=== PATIENT | female | born 1950 | race Hispanic/Latino ===

== ENCOUNTER → 2018-06-22 | Outpatient (CLI) | payer MEDICARE | END | disposition home or self-care (01) | LOC: RAH 09:56 | PROVIDERS: ATTEND Internal Medicine | DX: Z12.31 Encounter for screening mammogram for malignant neoplasm of breast (principal) | CPT/HCPCS: 77067 ==

== ENCOUNTER → 2018-12-14 | Outpatient (CLI) | payer MEDICARE | END | disposition home or self-care (01) | LOC: RAH 12:54 | PROVIDERS: ATTEND Internal Medicine | DX: R10.2 Pelvic and perineal pain (principal); Z90.710 Acquired absence of both cervix and uterus; Z90.721 Acquired absence of ovaries, unilateral | CPT/HCPCS: 76856 ==

== ENCOUNTER → 2019-07-03 | Outpatient (CLI) | payer MEDICARE | END | disposition home or self-care (01) | LOC: RAH 07:55 | PROVIDERS: ATTEND Internal Medicine | DX: Z12.31 Encounter for screening mammogram for malignant neoplasm of breast (principal) | CPT/HCPCS: 77067 ==

== ENCOUNTER → 2019-12-04 | Outpatient (CLI) | payer MEDICARE ==
[~2019-12-04] MED LIST: IOHEXOL-350 75 ML VIAL IV ONE
== END | disposition home or self-care (01) ==
LOC: RAH 08:37
PROVIDERS: ATTEND Internal Medicine
DX: K57.30 Diverticulosis of large intestine without perforation or abscess without bleeding (principal); Z90.49 Acquired absence of other specified parts of digestive tract
CPT/HCPCS: 74178; Q9967

== ENCOUNTER → 2020-02-19 | Outpatient (CLI) | payer MEDICARE ==
[~2020-02-19] MED LIST changes: +IOHEXOL 350 MG/ML 100ML INFUS..BTL IV ONE; -IOHEXOL-350 75 ML VIAL IV ONE
== END | disposition home or self-care (01) ==
LOC: OIH 09:36
PROVIDERS: ATTEND Internal Medicine
DX: J98.11 Atelectasis (principal); K57.30 Diverticulosis of large intestine without perforation or abscess without bleeding; K57.92 Diverticulitis of intestine, part unspecified, without perforation or abscess without bleeding
CPT/HCPCS: 74178; Q9967

== ENCOUNTER → 2022-09-24 | Outpatient (CLI) | payer MEDICARE | END | disposition home or self-care (01) | LOC: RAH 09:04 | PROVIDERS: ATTEND Internal Medicine | DX: Z12.31 Encounter for screening mammogram for malignant neoplasm of breast (principal) | CPT/HCPCS: 77067 ==

== ENCOUNTER → 2022-10-27 | Outpatient (CLI) | payer MEDICARE ==
[2022-10-27 16:29] LABS: CREATININE 0.8 mg/dL (0.5-1.5); POTASSIUM 4.5 mmol/L (3.5-5.1)
== END | disposition home or self-care (01) ==
LOC: LAB 15:09
PROVIDERS: ATTEND Internal Medicine Cardiovascular Disease
DX: R94.31 Abnormal electrocardiogram [ECG] [EKG] (principal)
CPT/HCPCS: 36415; 80048

== ENCOUNTER → 2022-11-05 | Outpatient (CLI) | payer MEDICARE, OTHER | END | disposition home or self-care (01) | LOC: RAH 11:14 | PROVIDERS: ATTEND Internal Medicine Cardiovascular Disease | DX: R07.9 Chest pain, unspecified (principal) | CPT/HCPCS: 75574; Q9967 ==

== ENCOUNTER → 2022-12-24 | Outpatient (CLI) | payer MEDICARE, OTHER | END | disposition home or self-care (01) | LOC: SHCH 14:34 | PROVIDERS: ATTEND Internal Medicine Cardiovascular Disease | DX: I51.7 Cardiomegaly (principal); R07.9 Chest pain, unspecified; E78.5 Hyperlipidemia, unspecified | CPT/HCPCS: 93306 ==

== ENCOUNTER → 2023-01-07 | Outpatient (CLI) | payer MEDICARE, OTHER | END | disposition home or self-care (01) | LOC: SHCH 13:22 | PROVIDERS: ATTEND Internal Medicine Cardiovascular Disease | DX: G45.9 Transient cerebral ischemic attack, unspecified (principal); R07.9 Chest pain, unspecified | CPT/HCPCS: 93880 ==

== ENCOUNTER → 2023-01-19 | Outpatient (CLI) | payer MEDICARE, OTHER | END | disposition home or self-care (01) | LOC: RAH 09:32 | DX: M47.817 Spondylosis without myelopathy or radiculopathy, lumbosacral region (principal); M54.42 Lumbago with sciatica, left side; M43.17 Spondylolisthesis, lumbosacral region | CPT/HCPCS: 72100 ==

== ENCOUNTER → 2023-02-17 | Outpatient (CLI) | payer MEDICARE, OTHER | END | disposition home or self-care (01) | LOC: RAH 11:38 | PROVIDERS: ATTEND Internal Medicine | DX: M43.8X6 Other specified deforming dorsopathies, lumbar region (principal); M48.07 Spinal stenosis, lumbosacral region; M47.817 Spondylosis without myelopathy or radiculopathy, lumbosacral region; G57.02 Lesion of sciatic nerve, left lower limb | CPT/HCPCS: 72148 ==

== ENCOUNTER → 2023-10-05 | Outpatient (CLI) | payer MEDICARE, OTHER ==
[~2023-10-05] MED LIST changes: +ACET-2079 PO; +ATOR10TA69 PO; +CLOP75TA32 PO; -IOHEXOL 350 MG/ML 100ML INFUS..BTL IV ONE; +PANT40TA54 PO
== END | disposition home or self-care (01) ==
LOC: RAH 11:20
PROVIDERS: ATTEND Internal Medicine
DX: Z12.31 Encounter for screening mammogram for malignant neoplasm of breast (principal)
CPT/HCPCS: 77067

== ENCOUNTER → 2024-07-13 | Outpatient (CLI) | payer MEDICARE, OTHER ==
--- NOTE | 2024-07-13 11:25 | HMCIMG ---
HIP UNILAT 2-3VW RIGHT HISTORY: Right hip bursitis COMPARISON: None TECHNIQUE: 2 images of right hip were obtained. FINDINGS: There is no acute displaced fracture or dislocation. Degenerative changes are seen. If there is clinical suspicion for right hip bursitis, MRI may be helpful. Postop changes are seen of the left proximal femur. IMPRESSION: 1. Findings as described above.
== END | disposition home or self-care (01) ==
LOC: RAH 09:29
DX: M16.11 Unilateral primary osteoarthritis, right hip (principal); M70.61 Trochanteric bursitis, right hip
CPT/HCPCS: 73502

== ENCOUNTER 2024-10-03 10:26 | Inpatient (IN) | payer MEDICARE ==
[~2024-10-03] VITALS: Ht 160 cm; Wt 67.6 kg
[2024-10-03] MEDS: morPHINE 2 MG SYG IVP ONE (10:43)
[2024-10-03] MEDS: ondanSETRON 4MG INJ IVP ONE (10:43)
[2024-10-03] MEDS: 0.9% NACL 500ML IV.SOLN 500 ML IV ONE (10:43)
--- NOTE | 2024-10-03 11:28 | HMCIMG ---
FEMUR 2VW RIGHT REASON: fall TECHNIQUE: 4 views were obtained. FINDINGS: There is a fracture of the right femoral shaft several centimeters below the intertrochanteric region. There is mild medial displacement of the distal shaft as well as varus angulation. Remainder of the femur appears intact. IMPRESSION: 1. Fractured proximal right femoral shaft.
--- NOTE | 2024-10-03 11:28 | HMCIMG ---
Exam: AP pelvis and right hip 3 views. Reason: Fall, trauma. FINDINGS: There is an angulated mildly displaced fracture of the right proximal femoral shaft several centimeters below the intertrochanteric region. There is varus angulation of the distal shaft. Bones of the pelvis appear intact. There is fixation hardware in the proximal left femur consistent with remote previous fracture fixation. IMPRESSION: 1. Subtrochanteric angulated and mildly displaced fracture proximal right femur.
--- NOTE | 2024-10-03 11:29 | HMCIMG ---
CHEST 1VW REASON: LEFT SIDE CHEST PAIN COMPARISON: 03/02/2023 FINDINGS: Single view of the chest was obtained. Lungs are clear. Heart size is normal. There is no pulmonary vascular congestion. Mediastinum and bony thorax appear unremarkable. IMPRESSION: 1. Normal single view chest x-ray.
--- NOTE | 2024-10-03 11:39 | ERN ---
General Chief Complaint: Mechanical Fall Stated Complaint: FALL Time Seen by MD: 10:29 Time Seen by Midlevel: 10:29 Source: patient, EMS History of Present Illness Initial Comments Patient is a 74-year-old female with a past medical history of hyperlipidemia on atorvastatin and Plavix presenting to the emergency department following a mechanical ground level fall. Patient states she was walking with her cane when she accidentally lost balance and fell onto her right side. The patient reports a significant amount of pain to the right hip. There is an obvious deformity noted. EMS administered 75 mcg of fentanyl EN route. On arrival patient is specifically denies any head injury, loss of consciousness, nausea, vomiting, vision changes or headache. She does report some chest wall pain. Allergies: Coded Allergies: Penicillins (Unverified Allergy, Unknown, 03/02/23) cephalexin (Unverified Allergy, Unknown, 03/02/23) gabapentin (Unverified Allergy, Unknown, 03/02/23) Home Meds Active Scripts Acetaminophen with Codeine (Acetaminophen-Cod #3 Tablet) 1 Each Tablet, 1 EACH PO DAILY for 5 Days, #10 TAB Prov:JACKIE SPEAR CONE TREATER 03/08/23 Reported Medications Cetirizine HCl (Zyrtec) 10 Mg Capsule, 1 CAP PO DAILY for allergy symptoms for 30 Days, #30 CAP 0 Refills 10/03/24 Montelukast Sodium (Singulair 10Mg) 10 Mg Tab, 1 TAB PO DAILY for 30 Days, #30 TAB 0 Refills 10/03/24 Atorvastatin Calcium (Atorvastatin Calcium) 10 Mg Tablet, 1 TAB PO DAILY 03/06/23 Clopidogrel Bisulfate (Clopidogrel) 75 Mg Tablet, 1 TAB PO DAILY 03/06/23 Pantoprazole Sodium (Pantoprazole Sodium) 40 Mg Tablet.dr, 1 TAB PO DAILY 03/06/23 Past Medical History Past Medical History: Hypertension Medical History Other: Back pain, osteoarthritis Past Surgical History: None Family History Family History: CAD, HTN Social History Social History: Negative, Lives with family ROS Dictation CONSTITUTIONAL: Negative except for HPI HEAD/FACE: Negative except for HPI EENT: Negative except for HPI RESPIRATORY: Negative except for HPI GASTROINTESTINAL/ABDOMINAL: Negative except for HPI GENITOURINARY: Negative except for HPI MUSCULOSKELETAL: Negative except for HPI INTEGUMENTARY: Negative except for HPI NEUROLOGICAL/PSYCH: Negative except for HPI HEMATOLOGIC/LYMPHATIC: Negative except for HPI All Systems Negative, Except as noted above. 13 point review of systems assessed and all negative except for above. Physical Exam Physical Exam Dictation Vital Signs reviewed General Appearance: Alert, oriented x 3, no acute distress, well developed, nourished. Head and Face: non-traumatic. Eyes: PERRL, pink conjunctivas, eyelid no trauma, anterior chamber with arcus senilis. Ears: Pinnas intact and no signs of trauma or erythema ear canals clear and no discharge TM no erythema Nose: No discharge, no bleeding. Oropharynx: Mouth normal, tongue pink, pharynx clear,no erythema, tonsils no exudates, no abscesses noted, mucous membrane moist Neck: Supple, non-tender, no thyromegaly, no masses, no JVD, no bruits Breast:Deferred Chest:No tenderness, no crepitus, no paradoxical movement, no retractions Lungs:Clear, well-ventilated, symmetric, no rales, no wheezing, no rhonchi, no stridor, good breath sounds bilaterally Heart: Regular rate, regular rhythm, no murmur, no gallops Vascular: no peripheral edema, Abdomen: Soft, positive bowel sounds, nondistended, no guarding, nontender, no rebound, no masses no hepatomegaly, no splenomegaly, no Casarez's sign, no hernias. Rectal: Deferred Genital: Deferred Neurological: Normal speech, motor function intact, sensory function intact Musculoskeletal: Neck nontender, full range of motion, back nontender, full range of motion, Extremities: Deformity to the right proximal femur, compartments are soft, patient was able to move all five toes of the right foot, sensation is intact to the right lower extremity, there is 2+ DP, PT pulses bilaterally. Skin: Color pink, dry, no turgor, no rash, no lacerations, no abrasions, no contusions. Lymphatic: Deferred Results Laboratory and Microbiology Lab and Micro Result Laboratory Tests Test 10/03/24 11:18 White Blood Count 7.1 K/uL (4.8-10.8) Red Blood Count 3.79 MIL/uL (4.00-5.50) L Hemoglobin 12.3 g/dL (12.0-16.0) Hematocrit 37.3 % (36-48) Mean Corpuscular Volume 98.4 fL (79-99) Mean Corpuscular Hemoglobin 32.5 pg (27.0-33.0) Mean Corpuscular Hemoglobin Concent 33.0 g/dL (32.0-36.0) Red Cell Distribution Width 12.2 % (11.0-15.5) Platelet Count 251 K/uL (130-400) Mean Platelet Volume 9.8 fL (7.5-10.5) Immature Granulocyte % (Auto) 0.4 % (0-1) Neutrophils (%) (Auto) 67.4 % (40.0-77.0) Lymphocytes (%) (Auto) 25.0 % (21.0-51.0) Monocytes (%) (Auto) 5.2 % (3.0-13.0) Eosinophils (%) (Auto) 1.3 % (0.0-8.0) Basophils (%) (Auto) 0.7 % (0.0-5.0) Neutrophils # (Auto) 4.8 K/uL (1.8-7.7) Lymphocytes # (Auto) 1.8 K/uL (1.0-4.8) Monocytes # (Auto) 0.4 K/uL (0.1-1.0) Eosinophils # (Auto) 0.09 K/uL (0.00-0.70) Basophils # (Auto) 0.05 K/uL (0.00-0.20) Absolute Immature Granulocyte (auto 0.03 K/uL (0-1) Nucleated Red Blood Cells 0.0 % (0.0-0.19) Prothrombin Time 10.7 SEC (9.6-11.6) Prothromb Time International Ratio 0.95 (0.85-1.15) Activated Partial Thromboplast Time 25.8 SEC (26.3-35.5) L Sodium Level 140 mmol/L (136-145) Potassium Level 3.6 mmol/L (3.5-5.1) Chloride Level 106 mmol/L (101-111) Carbon Dioxide Level 29 mmol/L (21-32) Blood Urea Nitrogen 26 mg/dL (7-18) H Creatinine 0.5 mg/dL (0.5-1.0) Glomerular Filtration Rate Calc 98 mL/min (>90) Random Glucose 97 mg/dL (70-105) Total Calcium 8.2 mg/dL (8.5-10.1) L Troponin I High Sensitivity < 4 ng/L (4-50) L Labs Reviewed?: Yes MDM MDM: Differential diagnosis: Fracture, dislocation, contusion Rationale: Tests considered and ordered secondary to shared decision making include: Previous outside records reviewed: Old ER visits. Risk of complication and/or morbidity or mortality of patient management: None Medications-Per medication reconciliation Need for hospitalization: Patient does meet criteria for hospitalization. Need for emergency major/minor surgery: No There are no social concerns with this patient. Prescription drug management Prescriptions will include symptomatic care Patient's prior external medical records from other ER visits were reviewed by me as indicated. Prior testing and results from previous visits were reviewed. Prior tests were taken into account with medical decision making and resource utilization, independent historian/historians were used to obtain complete medical history. I independently interpreted the test that were performed, results were reviewed by me and considered findings on radiology if ordered. Medical management and examination interpretation discussions were had by me with other qualified healthcare professionals as indicated for the patient's care. ED Course Orders Procedure Category Date Status Time Cbc With Differential LAB 10/03/24 Complete 10:31 Basic Metabolic Panel LAB 10/03/24 Complete 10:31 Pt And Ptt LAB 10/03/24 Complete 10:31 Troponin I High LAB 10/03/24 Complete Sensitivity 10:31 Morphine 2mg Syg PHA 10/03/24 Complete (Morphine 2mg Syg) 11:00 Ondansetron 4mg Inj PHA 10/03/24 Complete (Zofran 4mg Inj) 11:00 0.9% Nacl 500ml PHA 10/03/24 Complete Iv.Soln (Ns 500ml 11:00 Hip Unilat 2-3vw Right RAD 10/03/24 Resulted 10:31 Femur 2vw Right RAD 10/03/24 Resulted 10:31 Type And Screen BBK 10/03/24 Complete 10:47 Chest 1vw RAD 10/03/24 Resulted 10:47 12 Lead Ekg Tracing- EKG 10/03/24 Complete Technical 10:47 Hydromorphone 1 Mg PHA 10/03/24 Complete Inj (Dilaudid 1mg Inj 11:30 Current Medications Medications (Trade) Dose Ordered Sig/Vel Route PRN Reason Start Time Stop Time Status Last Admin Dose Admin Hydromorphone HCl (DiLAUDid 1MG INJ) 1 mg ONCE ONCE IVP 1/28/25 11:30 10/03/24 11:31 DC 10/03/24 12:13 Morphine Sulfate (morPHINE 2MG SYG) 2 mg ONCE ONCE IVP 10/03/24 11:00 10/03/24 11:01 DC 10/03/24 10:43 Ondansetron HCl (zoFRAN 4MG INJ) 4 mg ONCE ONCE IVP 10/03/24 11:00 10/03/24 11:01 DC 10/03/24 10:43 Sodium Chloride 500 ml @ 0 mls/hr ONCE ONCE IV 10/03/24 11:00 10/03/24 11:01 DC 10/03/24 10:43 Vital Signs Date Time Temp Pulse Resp B/P (MAP) Pulse Ox O2 Delivery O2 Flow Rate FiO2 10/03/24 10:36 98.1 63 18 134/67 97 Room Air* 0 [address] [place] [address] [address] IMAGING REPORT Signed PATIENT: KORI ADAIR MR#: [id number] : 1950 SEX: F AGE: 74 LOCATION: [facility] ORDER 1048 STATUS: REG ER REPORT#: [id number] SERVICE 1047 REASON: LEFT SIDE CHEST PAIN ORDERING PHYSICIAN: ROSE MAST PROCEDURE: CXR1VW - CHEST 1VW CHEST 1VW REASON: LEFT SIDE CHEST PAIN COMPARISON: 03/02/2023 FINDINGS: Single view of the chest was obtained. Lungs are clear. Heart size is normal. There is no pulmonary vascular congestion. Mediastinum and bony thorax appear unremarkable. IMPRESSION: 1. Normal single view chest x-ray. DICTATED BY: DOUG GREENWOOD MD DATE: 10/03/241125 ELECTRONICALLY SIGNED BY: DOUG GREENWOOD MD DATE: 10/03/24 [address] [place] [id number] [place] [address] IMAGING REPORT Signed PATIENT: KORI ADAIR MR#: [id number] : 1950 SEX: F AGE: 74 LOCATION: ED ORDER 32 STATUS: REG ER [place] REPORT#: [id number] SERVICE 103 REASON: fall ORDERING PHYSICIAN: ROSE MAST PROCEDURE: HIP U 2V R - HIP UNILAT 2-3VW RIGHT Exam: AP pelvis and right hip 3 views. Reason: Fall, trauma. FINDINGS: There is an angulated mildly displaced fracture of the right proximal femoral shaft several centimeters below the intertrochanteric region. There is varus angulation of the distal shaft. Bones of the pelvis appear intact. There is fixation hardware in the proximal left femur consistent with remote previous fracture fixation. IMPRESSION: 1. Subtrochanteric angulated and mildly displaced fracture proximal right femur. DICTATED BY: DOUG GREENWOOD MD DATE: 10/03/241123 ELECTRONICALLY SIGNED BY: DOUG GREENWOOD MD DATE: 10/03/241127 [place] [address] IMAGING REPORT Signed PATIENT: KORI ADAIR MR#: [id number] : 1950 SEX: F AGE: 74 LOCATION: [facility] ORDER 32 STATUS: REG ER [place] REPORT#: [id number] SERVICE 103 REASON: fall ORDERING PHYSICIAN: ROSE MAST PROCEDURE: FEM RT 2 - FEMUR 2VW RIGHT FEMUR 2VW RIGHT REASON: fall TECHNIQUE: 4 views were obtained. FINDINGS: There is a fracture of the right femoral shaft several centimeters below the intertrochanteric region. There is mild medial displacement of the distal shaft as well as varus angulation. Remainder of the femur appears intact. IMPRESSION: 1. Fractured proximal right femoral shaft. DICTATED BY: DOUG GREENWOOD MD DATE: 10/03/241125 ELECTRONICALLY SIGNED BY: DOUG GREENWOOD MD DATE: 10/03/241127 DX & DISP Disposition: Inpatient Decision to Admit Date: Oct 03, 2024 Departure Impression: Primary Impression: Femur fracture, right Condition: Stable Referrals: EDU LOYD MD (PCP) I have reviewed the case, and I agree with, Diagnosis and Plan I performed the substantive portion of the visit. I have reviewed and personally made and approve the management plan that is documented in the note by myself or the [place]AR[place]. I acknowledge for responsibility for the patient's management plan. ROSE MAST Oct 03, 2024 11:39 JAY JAY CARLTON MD Oct 03, 2024 18:49
--- NOTE | 2024-10-03 12:05 | EKG ---
[facility] Test Date: 2024-10-03 Test Time: 11:15:50 Pat Name: KORI ADAIR Department: [facility] Room: 424 Gender: F Configuration Management Consultant: [id number] : 1950 Requested By: ROSE MAST Order Number: [id number] Reading MD: Bry Moore Measurements Intervals [place] Rate: 58 P: 59 AL: 159 QRS: 55 QRSD: 101 T: 36 QT: 442 QTc: 436 Interpretive Statements Sinus rhythm Compared to ECG 03/02/2023 23:53:43 No significant changes Electronically Signed On 10-04-2024 20:01:25 SWIMMING POOL SERVICEPERSON by Bry Moore Please click the below link to view image of tracing.
[2024-10-03 12:09] LABS: BASOPHILS # (AUTO) 0.05 K/uL (0.00-0.20); BASOPHILS % (AUTO) 0.7 % (0.0-5.0); EOSINOPHILS # (AUTO) 0.09 K/uL (0.00-0.70); EOSINOPHILS % (AUTO) 1.3 % (0.0-8.0); HEMATOCRIT 37.3 % (36-48); IMMATURE GRANULOCYTE ABSOLUTE 0.03 K/uL (0-1); LYMPHOCYTES # (AUTO) 1.8 K/uL (1.0-4.8); MEAN CORPUSCULAR HEMOGLOBIN 32.5 pg (27.0-33.0); MEAN CORPUSCULAR VOLUME 98.4 fL (79-99); MONOCYTES # (AUTO) 0.4 K/uL (0.1-1.0); MONOCYTES % (AUTO) 5.2 % (3.0-13.0); NEUTROPHILS # (AUTO) 4.8 K/uL (1.8-7.7); NEUTROPHILS % (AUTO) 67.4 % (40.0-77.0); PLATELET COUNT (AUTO) 251 K/uL (130-400); RED BLOOD CELL COUNT(AUTO) 3.79 MIL/uL (4.00-5.50); RED CELL DISTRIBUTION WIDTH 12.2 % (11.0-15.5); WHITE BLOOD COUNT (AUTO) 7.1 K/uL (4.8-10.8)
[2024-10-03] MEDS: hydroMORPHone 1 MG INJ IVP ONE (12:13)
--- NOTE | 2024-10-03 12:17 | NUR ---
PT INFORMED OF BUCKS TRACTION ORDER
[2024-10-03 12:28] LABS: CREATININE 0.5 mg/dL (0.5-1.0); POTASSIUM 3.6 mmol/L (3.5-5.1)
--- NOTE | 2024-10-03 12:31 | HP ---
[facility] HISTORY AND PHYSICAL Date of Service: Oct 03, 2024 Time of Service: 12:18 HISTORY OF PRESENT ILLNESS: [ ] This is a 74-year-old female presents in ER with right hip pain secondary to mechanical fall. Apparently patient was walking with her cane and lost balance and fell on her left side however she felt a pop on her right side. Patient presents in ED with chief complaints of right hip pain stated 10/10 on pain scale severity severe aggravated factors movement. Alleviating factors none. ER workup was consistent with right proximal femur fracture. Orthopedic was consulted. Patient is seen in ED15 patient is fully awake alert oriented x3. REVIEW OF SYSTEMS A14 point ROS was obtained all relevant positive with documented otherwise ROS negative PAST MEDICAL HISTORY: [ ] Hyperlipidemia TIA osteoporosis PAST SURGICAL HISTORY: [ ] Hysterectomy, appendectomy, left femur ORIF, PAST SOCIAL HISTORY: [ ] Denies smoking tobacco products and alcohol use. FAMILY HISTORY: [ ] Noncontributory Coded Allergies: Penicillins (Unverified Allergy, Unknown, 03/02/23) cephalexin (Unverified Allergy, Unknown, 03/02/23) gabapentin (Unverified Allergy, Unknown, 03/02/23) PHYSICAL EXAM GENERAL APPEARANCE: The patient is awake, alert, and oriented, in no acute cardiopulmonary distress. NEUROLOGICAL: Cranial nerves II-XII grossly intact. Motor is 5/5 in bilateral upper and lower extremities proximal to distal. No sensory deficits. HEENT: Face is symmetric. Pupils are equal and reactive. Extraocular movements are intact. NECK: Supple. No JVD. No thyromegaly. No submental, submandibular, pre- /postauricular, occipital or supraclavicular lymphadenopathy. CHEST: Normal chest expansion. No Telemetry. LUNGS: Absence of any rales, rhonchi or any wheezing. CARDIOVASCULAR: Regular. S1 and S2 normal. No appreciable rubs, murmurs or gallops. ABDOMEN: Soft, nontender, and nondistended. There is no rebound, voluntary guarding, or rigidity. : Deferred. No Hou. EXTREMITIES: Non-edematous and not cyanotic. No clubbing. Good capillary refill. Deformity right lower extremity SKIN: No skin breakdown. Vital Sign (Last 24 Hours) 10/03/24 10/03/24 10:36 11:52 Temp 98.1 Pulse 63 Resp 18 B/P (MAP) 140/58 Pulse Ox 96 O2 Delivery Room Air* O2 Flow Rate 0 FiO2 21 LABS: Laboratory: Test 10/03/24 11:18 Range/Units White Blood Count 7.1 4.8-10.8 K/uL Red Blood Count 3.79 L 4.00-5.50 MIL/uL Hemoglobin 12.3 12.0-16.0 g/dL Hematocrit 37.3 36-48 % Mean Corpuscular Volume 98.4 79-99 fL Mean Corpuscular Hemoglobin 32.5 27.0-33.0 pg Mean Corpuscular Hemoglobin Concent 33.0 32.0-36.0 g/dL Red Cell Distribution Width 12.2 11.0-15.5 % Platelet Count 251 130-400 K/uL Mean Platelet Volume 9.8 7.5-10.5 fL Immature Granulocyte % (Auto) 0.4 0-1 % Neutrophils (%) (Auto) 67.4 40.0-77.0 % Lymphocytes (%) (Auto) 25.0 21.0-51.0 % Monocytes (%) (Auto) 5.2 3.0-13.0 % Eosinophils (%) (Auto) 1.3 0.0-8.0 % Basophils (%) (Auto) 0.7 0.0-5.0 % Neutrophils # (Auto) 4.8 1.8-7.7 K/uL Lymphocytes # (Auto) 1.8 1.0-4.8 K/uL Monocytes # (Auto) 0.4 0.1-1.0 K/uL Eosinophils # (Auto) 0.09 0.00-0.70 K/uL Basophils # (Auto) 0.05 0.00-0.20 K/uL Absolute Immature Granulocyte (auto 0.03 0-1 K/uL Nucleated Red Blood Cells 0.0 0.0-0.19 % DIAGNOSTICS / RADIOLOGY: [ ] REASON: fall ORDERING PHYSICIAN: ROSE MAST PROCEDURE: HIP U 2V R - HIP UNILAT 2-3VW RIGHT Exam: AP pelvis and right hip 3 views. Reason: Fall, trauma. FINDINGS: There is an angulated mildly displaced fracture of the right proximal femoral shaft several centimeters below the intertrochanteric region. There is varus angulation of the distal shaft. Bones of the pelvis appear intact. There is fixation hardware in the proximal left femur consistent with remote previous fracture fixation. IMPRESSION: 1. Subtrochanteric angulated and mildly displaced fracture proximal right femur. ASSESSMENT: Right proximal femur fracture secondary to mechanical fall Chronic problems Hyperlipidemia, osteoporosis TIA on Plavix every other day PLAN: Admit: Surgical unit condition: Fair Status: Full code IVF: NS at 75 mL/hour Consultants orthopedic possible surgery tomorrow. DVT prophylaxis SCDs, pain management for adequate pain control Antibiotics: None Test: None Labs cbc, cmp, mag+ type screen Replace electrolytes as needed as per protocol to keep potassium above 4.0 magnesium 2.0. Home medication on Plavix every other day last dose Wednesday10/02/2024 PT services: 5 lb traction applied DVT prophylaxis SCDs PRN: MEDICATIONS Tylenol 650 mg po every 4 hrs for fever zofran 4 mg IV every 6 hrs for n/v Hydralazine 5 mg IV every 4 hrs systolic pressure > 160 bowel regiment: lactulose 20 gm PO BID PRN constipation Supportive measures: DVT ppx, GI ppx all questions answered time spent: > 35 min Supervising MD: c/d This document was generated in part using voice recognition software, occasional wrong word or sound alike substitutions may have occurred due to the inherent limitations of voice recognition software. Read the chart carefully and recognize using context, where the substitutions have occurred. Although every effort was made to edit the content, torpedo worker and typing errors may occur ADVANCED CARE PLANNING 1. Which of the following were discussed? Hospice Care - Yes / No Therapeutic options - Yes / No Advance Directives - Yes / No Other discussions - 2. Discussed with who? 3. Voluntary nature of this service was explained to the patient? Yes / No 4. Amount of time spent - 5. Reviewed by Physician? (if this service was performed by NPP) Yes / No ATTESTATION BY PHYSICIAN I have seen and examined the patient. I reviewed the documentation, medical decision making, and treatment plan as noted by the mid-level provider above. I agree with the findings and plan of care. SUZAN VARGAS MD, ELIZABETH NP Oct 03, 2024 12:31
[2024-10-03 12:59] LABS: INR 0.95 (0.85-1.15); PROTHROMBIN TIME 10.7 SEC (9.6-11.6)
[2024-10-03 13:01] LABS: PARTIAL THROMBOPLASTIN TIME 25.8 SEC (26.3-35.5)
--- NOTE | 2024-10-03 13:09 | NUR ---
ORTHO CONSULT: ROSE ENGLISH SPOKE WITH DR PATEL
--- NOTE | 2024-10-03 13:18 | NUR ---
BUCKS TRACTION PLACED PER ORDER BY PT
[2024-10-03] MEDS ORDERED: acetaMINOPHEN 325 MG TAB PO PRN (13:30)
[2024-10-03] MEDS ORDERED: hydrALAZine 20MG/ML VIAL IV PRN (13:30)
[2024-10-03] MEDS: HYDROcodone/APAP 5/325 1 TAB TABLET PO PRN (13:45)
[2024-10-03] MEDS: 0.9%NACL 1000ML 1,000 ML IV SCH (13:54)
--- NOTE | 2024-10-03 14:32 | NUR ---
arrived from ER patient alert and oriented x4, rating pain 9/10 to right lower extremity, neurovascular assessment completed, sensation intact, color appropriate, family at bedside, vitals stable on room air.
[2024-10-03 14:45] VITALS: BP 142/62; PULSE 69; RESP 17; TEMP 97.7
[2024-10-03] MEDS: hydroMORPHone 0.5 MG SYG (0.5MG/0.5ML) IVP PRN (14:47)
[2024-10-03 14:57] LABS: HIV 1&2 ANTIBODY Non-Reactive (Negative); HIV-1 p24 Antigen Preliminary Positive (Negative)
[2024-10-03] MEDS ORDERED: MONT-46 PO (15:56)
[2024-10-03] MEDS ORDERED: CETI10CA5 PO (15:56)
[2024-10-03 16:00] VITALS: BP 113/56; PULSE 67; RESP 15; TEMP 98.3
[2024-10-03 16:58] VITALS: O2SAT 97
[2024-10-03 19:35] VITALS: BP 130/65; PULSE 76; RESP 20; TEMP 98.4
[2024-10-03] MEDS: FAMOTIDINE 20MG TAB PO SCH (19:40)
[2024-10-03 20:00] VITALS: O2SAT 95
[2024-10-03 23:48] VITALS: BP 109/57; PULSE 61; RESP 20; TEMP 98.1
[2024-10-04] VITALS (26 sets, daily range): BP systolic 103–137; BP diastolic 43–87; PULSE 56–83; RESP 15–20; TEMP 97.1–98.2; O2SAT 97
--- NOTE | 2024-10-04 03:08 | CONS ---
TIME: Approximately 1:20 p.m. HISTORY OF PRESENT ILLNESS: A 74-year-old female who was walking had sudden onset of pain and fell on that left side, sustained a right subtrochanteric femur fracture. She was seen in the ER and I was asked to see her. PRIOR MEDICAL HISTORY: She also has a history of hyperlipidemia, TIA, and osteoporosis. PAST SURGICAL HISTORY: Hysterectomy, appendectomy and ORIF of the left femur. MEDICATIONS: In the chart, they were reviewed. ALLERGIES: SHE HAS ALLERGIES TO PENICILLIN, CEPHALEXIN, GABAPENTIN. SOCIAL HISTORY: She does not drink, smoke or do any drugs. PHYSICAL EXAMINATION: GENERAL: On exam, she is in bed, awake and alert and oriented. She is in no acute distress, in no pain. She is in traction. EXTREMITIES: Her left lower extremity skin is intact. Sensation intact. Compartments are soft. She can flex, extend her toes and ankles without difficulty. DIAGNOSTIC DATA: X-rays show a subtrochanteric femur fracture on that right side. She also has equal fracture on the left that is healed. IMPRESSION: Subtrochanteric femur fracture. PLAN: She has been cleared. We will her take her to surgery tomorrow for open reduction and internal fixation with intramedullary device. Risks and benefits were explained. TID: [id number] RECEIPT: [id number]
[2024-10-04 05:13] LABS: BASOPHILS # (AUTO) 0.03 K/uL (0.00-0.20); BASOPHILS % (AUTO) 0.4 % (0.0-5.0); EOSINOPHILS # (AUTO) 0.03 K/uL (0.00-0.70); EOSINOPHILS % (AUTO) 0.4 % (0.0-8.0); HEMATOCRIT 33.9 % (36-48); IMMATURE GRANULOCYTE ABSOLUTE 0.03 K/uL (0-1); LYMPHOCYTES # (AUTO) 2.1 K/uL (1.0-4.8); LYMPHOCYTES % (AUTO) 29.6 % (21.0-51.0); MEAN CORPUSCULAR HEMOGLOBIN 32.5 pg (27.0-33.0); MEAN CORPUSCULAR HGB CONC 33.6 g/dL (32.0-36.0); MEAN CORPUSCULAR VOLUME 96.6 fL (79-99); MONOCYTES # (AUTO) 0.6 K/uL (0.1-1.0); MONOCYTES % (AUTO) 8.9 % (3.0-13.0); NEUTROPHILS # (AUTO) 4.3 K/uL (1.8-7.7); NEUTROPHILS % (AUTO) 60.3 % (40.0-77.0); PLATELET COUNT (AUTO) 255 K/uL (130-400); RED BLOOD CELL COUNT(AUTO) 3.51 MIL/uL (4.00-5.50); RED CELL DISTRIBUTION WIDTH 12.3 % (11.0-15.5); WHITE BLOOD COUNT (AUTO) 7.1 K/uL (4.8-10.8)
[2024-10-04 05:30] LABS: ALBUMIN 3.2 g/dL (3.5-5.0); CREATININE 0.6 mg/dL (0.5-1.0); MAGNESIUM 2.1 mg/dL (1.80-2.40); POTASSIUM 4.1 mmol/L (3.5-5.1); TOTAL PROTEIN, SERUM 6.2 g/dL (6.0-8.3)
[2024-10-04] MEDS: FAMOTIDINE 20MG VIAL IV ONE (10:08)
[2024-10-04] MEDS: acetaMINOPHEN 100 ML ONE (10:08)
[2024-10-04] MEDS ORDERED: ketaMINE 50MG/ML SYRINGE 50 MG/ML DISP.SYRIN ONE (10:12)
[2024-10-04] MEDS ORDERED: LIDOCAINE PF 100MG/5ML (2%) SYRINGE 5ML ONE (10:12)
[2024-10-04] MEDS ORDERED: ROPivacaine 0.5% 5MG/ML 30ML ONE (10:12)
[2024-10-04] MEDS ORDERED: FENTanyl CITRate PF 50 MCG/1 ML 2ML VIAL ONE (10:13)
[2024-10-04] MEDS ORDERED: rocuRONium bROMide 10MG/1ML 5ML VL ONE (10:13)
[2024-10-04] MEDS ORDERED: proPOFol 10 MG/ML 20ML VIAL IV ONE (10:13)
[2024-10-04] MEDS: ceFAZolin SODIUM 2 GM VIAL IVPB ONE (10:46)
[2024-10-04] MEDS ORDERED: dexaMETHasone SOD PHOSPHATE 10MG/ML 1ML VIAL ONE (11:07)
[2024-10-04] MEDS ORDERED: ondanSETRON 4MG INJ ONE (11:07)
[2024-10-04] MEDS ORDERED: GLYCOPYRROLATE 0.2 MG/ML 5 ML VIAL ONE (11:18)
[2024-10-04] MEDS ORDERED: NEOSTIGMINE METHYLSULFATE 1MG/ML IV ONE (11:18)
[2024-10-04] MEDS ORDERED: ePHEDrine SULFate 50 MG/ML AMPULE ONE (11:28)
--- NOTE | 2024-10-04 13:42 | HMCIMG ---
FEMUR 2VW RIGHT REASON: ORIF RIGHT FEMUR FX, SX TECHNIQUE: 11 surgical spot views were obtained. These document operative reduction and internal fixation of proximal right femur fracture. Fluoroscopy time was 110.2 seconds. IMPRESSION: 1. Documentation of operative reduction and internal fixation proximal right hip fracture.
--- NOTE | 2024-10-04 14:05 | HMCIMG ---
HIP UNILAT 2-3VW RIGHT REASON: POST OP COMPARISON: None TECHNIQUE: 3 views were performed of the right hip and proximal femur. FINDINGS: There is fixation hardware in place. There are surgical changes in the adjacent soft tissues. IMPRESSION: 1. Document station of ORIF procedure right hip fracture.
--- NOTE | 2024-10-04 14:30 | PN ---
[facility] PROGRESS NOTE Date of Service: Oct 04, 2024 Time of Service: 12:26 SUBJECTIVE: This is a 74-year-old female presents in ER with right hip pain secondary to mechanical fall. Apparently patient was walking with her cane and lost balance and fell on her left side however she felt a pop on her right side. Patient presents in ED with chief complaints of right hip pain stated 10/10 on pain scale severity severe aggravated factors movement. Alleviating factors none. ER workup was consistent with right proximal femur fracture. Orthopedic was consulted. Patient is seen in ED15 patient is fully awake alert oriented x3. 10/04/2024: Patient is going ORIF of the right subtrochanteric femur fracture secondary to mechanical fall today. We will start Caltrate after surgery and manage pain as needed. Home meds reconciled, clopidogrel still on hold. REVIEW OF SYSTEMS A14 point ROS was obtained all relevant positive with documented otherwise ROS negative PHYSICAL EXAM GENERAL APPEARANCE: The patient is awake, alert, and oriented, in no acute cardiopulmonary distress. NEUROLOGICAL: Cranial nerves II-XII grossly intact. Motor is 5/5 in bilateral upper and lower extremities proximal to distal. No sensory deficits. HEENT: Face is symmetric. Pupils are equal and reactive. Extraocular movements are intact. NECK: Supple. No JVD. No thyromegaly. No submental, submandibular, pre- /postauricular, occipital or supraclavicular lymphadenopathy. CHEST: Normal chest expansion. No Telemetry. LUNGS: Absence of any rales, rhonchi or any wheezing. CARDIOVASCULAR: Regular. S1 and S2 normal. No appreciable rubs, murmurs or gallops. ABDOMEN: Soft, nontender, and nondistended. There is no rebound, voluntary guarding, or rigidity. : Deferred. No Hou. EXTREMITIES: Non-edematous and not cyanotic. No clubbing. Good capillary re fill. Deformity right lower extremity SKIN: No skin breakdown. Vital Signs (last 8hr) Date Time Temp Pulse Resp B/P (MAP) Pulse Ox O2 Delivery O2 Flow Rate FiO2 10/04/24 14:20 97.5 63 15 110/51 98 Nasal Cannula 3.0 28 10/04/24 14:15 97.5 66 15 114/55 98 Nasal Cannula 3.0 28 10/04/24 14:10 97.5 62 15 112/52 98 Nasal Cannula 3.0 10/04/24 14:05 97.5 68 15 110/49 97 Nasal Cannula 3.0 10/04/24 14:00 97.5 68 15 114/50 97 Nasal Cannula 3.0 10/04/24 13:50 97.5 66 15 113/56 97 Nasal Cannula 3.0 10/04/24 13:45 97.5 66 15 110/53 97 Nasal Cannula 3.0 10/04/24 13:40 97.5 62 15 116/48 98 Nasal Cannula 3.0 10/04/24 13:35 97.2 62 15 115/43 98 Nasal Cannula 3.0 10/04/24 13:30 97.2 58 15 120/45 98 Nonrebreathing Mask 10.0 100 10/04/24 13:25 97.2 59 15 122/49 98 Nonrebreathing Mask 10.0 100 10/04/24 13:20 97.2 63 15 121/48 95 Nasal Cannula 10.0 100 10/04/24 08:00 98.1 71 19 113/46 100 Room Air LABS: Laboratory: Test 10/04/24 04:40 10/03/24 13:35 10/03/24 11:18 Range/Units White Blood Count 7.1 4.8-10.8 K/uL Red Blood Count 3.51 L 4.00-5.50 MIL/uL Hemoglobin 11.4 L 12.0-16.0 g/dL Hematocrit 33.9 L 36-48 % Mean Corpuscular Volume 96.6 79-99 fL Mean Corpuscular Hemoglobin 32.5 27.0-33.0 pg Mean Corpuscular Hemoglobin Concent 33.6 32.0-36.0 g/dL Red Cell Distribution Width 12.3 11.0-15.5 % Platelet Count 255 130-400 K/uL Mean Platelet Volume 10.0 7.5-10.5 fL Immature Granulocyte % (Auto) 0.4 0-1 % Neutrophils (%) (Auto) 60.3 40.0-77.0 % Lymphocytes (%) (Auto) 29.6 21.0-51.0 % Monocytes (%) (Auto) 8.9 3.0-13.0 % Eosinophils (%) (Auto) 0.4 0.0-8.0 % Basophils (%) (Auto) 0.4 0.0-5.0 % Neutrophils # (Auto) 4.3 1.8-7.7 K/uL Lymphocytes # (Auto) 2.1 1.0-4.8 K/uL Monocytes # (Auto) 0.6 0.1-1.0 K/uL Eosinophils # (Auto) 0.03 0.00-0.70 K/uL Basophils # (Auto) 0.03 0.00-0.20 K/uL Absolute Immature Granulocyte (auto 0.03 0-1 K/uL Nucleated Red Blood Cells 0.0 0.0-0.19 % Sodium Level 138 136-145 mmol/L Potassium Level 4.1 3.5-5.1 mmol/L Chloride Level 104 101-111 mmol/L Carbon Dioxide Level 27 21-32 mmol/L Blood Urea Nitrogen 16 7-18 mg/dL Creatinine 0.6 0.5-1.0 mg/dL Glomerular Filtration Rate Calc 94 >90 mL/min Random Glucose 96 70-105 mg/dL Total Calcium 8.1 L 8.5-10.1 mg/dL Magnesium Level 2.10 1.80-2.40 mg/dL Total Bilirubin 1.0 0.2-1.0 mg/dL Aspartate Amino Transf (AST/SGOT) 25 10-37 U/L Alanine Aminotransferase (ALT/SGPT) 26 12-78 U/L Alkaline Phosphatase 43 L 50-136 U/L Total Protein 6.2 6.0-8.3 g/dL Albumin 3.2 L 3.5-5.0 g/dL HIV (1&2) Antibody Non-Reactive Negative HIV P24 Antigen, Qualitative Preliminary Positive *A Negative Prothrombin Time 10.7 9.6-11.6 SEC Prothromb Time International Ratio 0.95 0.85-1.15 Activated Partial Thromboplast Time 25.8 L 26.3-35.5 SEC Troponin I High Sensitivity < 4 L 4-50 ng/L Current Medications Medications (Trade) Dose Ordered Sig/Vel Route PRN Reason Start Time Stop Time Status Last Admin Dose Admin Acetaminophen (TYLenol 325MG TAB) 650 mg Q4H PRN PO TEMPERATURE GREATER THAN 101.5 10/03/24 13:30 11/02/24 13:29 Acetaminophen/ Hydrocodone Bitart (NORco 5/325MG) 1 tab Q6H PRN PO MODERATE PAIN (4-6) 10/03/24 13:30 10/08/24 13:29 10/03/24 22:37 1 TAB Famotidine (Pepcid 20mg Tab) 20 mg BID PO 10/03/24 21:00 11/02/24 20:59 10/03/24 19:40 20 MG Hydralazine HCl (APRESOLine 20MG INJ) 5 mg Q4H PRN IV ADMINISTER FOR SBP > 160 10/03/24 13:30 11/02/24 13:29 Hydromorphone HCl (DiLAUDid 0.5MG INJ) 0.5 mg Q4H PRN IVP SEVERE PAIN (7-10) 10/03/24 13:30 10/08/24 13:29 10/04/24 07:58 0.5 MG Lactulose (Constulose 20gm/ 30ml Udcup) 20 gm BID PRN PO CONSTIPATION 10/03/24 13:30 11/02/24 13:29 Sodium Chloride 1,000 ml @ 75 mls/hr [id number] IV 10/03/24 13:30 11/02/24 13:29 10/03/24 13:54 74 MLS/HR DIAGNOSTICS / RADIOLOGY: PATIENT: KORI ADAIR MR#: [id number] : 1950 SEX: F AGE: 74 LOCATION: 4DH ORDER [id number] STATUS: ADM IN REPORT#: [id number] SERVICE 1311 REASON: POST OP ORDERING PHYSICIAN: BRITTNEY PATEL MD PROCEDURE: HIP U 2V R - HIP UNILAT 2-3VW RIGHT HIP UNILAT 2-3VW RIGHT REASON: POST OP COMPARISON: None TECHNIQUE: 3 views were performed of the right hip and proximal femur. FINDINGS: There is fixation hardware in place. There are surgical changes in the adjacent soft tissues. IMPRESSION: 1. Document station of ORIF procedure right hip fracture. DICTATED BY: DOUG GREENWOOD MD DATE: 10/04/241400 ELECTRONICALLY SIGNED BY: DOUG GREENWOOD MD DATE: 10/04/24 140 PATIENT: KORI ADAIR MR#: [id number] : 1950 SEX: F AGE: 74 LOCATION: 4DH ORDER [id number] STATUS: ADM IN REPORT#: [id number] SERVICE REASON: ORIF RIGHT FEMUR FX, SX ORDERING PHYSICIAN: BRITTNEY PATEL MD PROCEDURE: FEM RT 2 - FEMUR 2VW RIGHT FEMUR 2VW RIGHT REASON: ORIF RIGHT FEMUR FX, SX TECHNIQUE: 11 surgical spot views were obtained. These document operative reduction and internal fixation of proximal right femur fracture. Fluoroscopy time was 110.2 seconds. IMPRESSION: 1. Documentation of operative reduction and internal fixation proximal right hip fracture. DICTATED BY: DOUG GREENWOOD MD DATE: 10/04/24 1339 ELECTRONICALLY SIGNED BY: DOUG GREENWOOD MD DATE: 10/04/24 1342 PATIENT: KORI ADAIR MR#: [id number] : 1950 SEX: F AGE: 74 LOCATION: EDH ORDER [id number] STATUS: REG ER REPORT#: [id number] SERVICE 1047 REASON: LEFT SIDE CHEST PAIN ORDERING PHYSICIAN: ROSE MAST PROCEDURE: CXR1VW - CHEST 1VW CHEST 1VW REASON: LEFT SIDE CHEST PAIN COMPARISON: 03/02/2023 FINDINGS: Single view of the chest was obtained. Lungs are clear. Heart size is normal. There is no pulmonary vascular congestion. Mediastinum and bony thorax appear unremarkable. IMPRESSION: 1. Normal single view chest x-ray. DICTATED BY: DOUG GREENWOOD MD DATE: 10/03/24 1126 ELECTRONICALLY SIGNED BY: DOUG GREENWOOD MD DATE: 10/03/24 1129 PATIENT: KORI ADAIR MR#: [id number] : 1950 SEX: F AGE: 74 LOCATION: EDH ORDER 1033 STATUS: REG ER [facility] REPORT#: [id number] SERVICE 1031 REASON: fall ORDERING PHYSICIAN: ROSE MAST PROCEDURE: HIP U 2V R - HIP UNILAT 2-3VW RIGHT Exam: AP pelvis and right hip 3 views. Reason: Fall, trauma. FINDINGS: There is an angulated mildly displaced fracture of the right proximal femoral shaft several centimeters below the intertrochanteric region. There is varus angulation of the distal shaft. Bones of the pelvis appear intact. There is fixation hardware in the proximal left femur consistent with remote previous fracture fixation. IMPRESSION: 1. Subtrochanteric angulated and mildly displaced fracture proximal right femur. DICTATED BY: DOUG GREENWOOD MD DATE: 10/03/241123 ELECTRONICALLY SIGNED BY: DOUG GREENWOOD MD DATE: 10/03/241127 PATIENT: KORI ADAIR MR#: [id number] : 1950 SEX: F AGE: 74 LOCATION: EDH ORDER [id number] STATUS: [facility] REPORT#: [id number] SERVICE 1031 REASON: fall ORDERING PHYSICIAN: ROSE MAST PROCEDURE: FEM RT 2 - FEMUR 2VW RIGHT FEMUR 2VW RIGHT REASON: fall TECHNIQUE: 4 views were obtained. FINDINGS: There is a fracture of the right femoral shaft several centimeters below the intertrochanteric region. There is mild medial displacement of the distal shaft as well as varus angulation. Remainder of the femur appears intact. IMPRESSION: 1. Fractured proximal right femoral shaft. DICTATED BY: DOUG GREENWOOD MD DATE: 10/03/241125 ELECTRONICALLY SIGNED BY: DOUG GREENWOOD MD DATE: 10/03/241127 ASSESSMENT: Status post ORIF of right subtrochanteric femur fracture. Right proximal femur fracture secondary to mechanical fall Chronic problems Hyperlipidemia, osteoporosis TIA on Plavix every other day PLAN: Admit: Surgical unit condition: Fair Status: Full code IVF: NS at 75 mL/hour DVT prophylaxis SCDs, pain management for adequate pain control Antibiotics: None Test: None Labs cbc, cmp, mag Replace electrolytes as needed as per protocol to keep potassium above 4.0 magnesium 2.0. Home medication on Plavix every other day last dose Wednesday10/02/2024 PT services: 5 lb traction applied PRN: MEDICATIONS Tylenol 650 mg po every 4 hrs for fever zofran 4 mg IV every 6 hrs for n/v Hydralazine 5 mg IV every 4 hrs systolic pressure > 160 bowel regiment: lactulose 20 gm PO BID PRN constipation ATTESTATION BY PHYSICIAN I have seen and examined the patient. I reviewed the documentation, medical decision making, and treatment plan as noted by the resident provider above. I agree with the findings and plan of care. Tan Lyons MD, NEHA MD Oct 04, 2024 14:29
--- NOTE | 2024-10-04 15:56 | NUR ---
DCP CM MET WITH PT, SPOUSE, SISTER IN ROOM THIS AFTERNOON, ASSESSMENT DONE. PATIENT WAS INDEPENDENT PRIOR TO ADMISSION, SISTER LIVES WITH PT AND HER SPOUSE AT HOME. PATIENT HAS A ROLLATOR WALKER, REGULAR WALKER, SHOWER CHAIR. DENIES ANY OTHER EQUIPMENT/SERVICES. FEELS SAFE TO GO BACK HOME, SISTER AND SPOUSE ABLE TO ASSIST WITH TRANSPORTATION AND NEEDS NECESSARY. DISCUSSED POSSIBLE SNF FOR SHORT TERM REHAB, PT AGREEABLE, GIVEN IN NETWORK FACILITIES, PT REQUESTING PRIVATE ROOM WHERE HER SISTER CAN STAY OVER NIGHT IN CASE SHE NEEDS ASSISTANCE. CM SPOKE TO TOR [facility], [facility] HAS PRIVATE BED AND SISTER CAN STAY. PT MADE AWARE, AGREEABLE, CONSENT SIGNED DANA FOR [facility]. PT WILL NEED TO COMPLETE 3MIDNIGHTS PRIOR TO TRANSFER, ANTICIPATE TRANSFER EARLIEST WEDNESDAY. DCP TO SNF ONCE ACCEPTED. CM TO CONTINUE TO FOLLOW UP. Addendum: 10/04/24 at 1559 by CHASE BONNER LVN CM Amended: Links added.
[2024-10-04] MEDS: CA 600MG+VIT D 400 UNIT TAB 1 TAB TABLET PO ONE (17:14)
[2024-10-04] MEDS: ceFAZolin SODIUM 1 GM VIAL IVPB SCH (19:37)
--- NOTE | 2024-10-04 19:41 | OP ---
DATE OF PROCEDURE: 10/04/2024 PREOPERATIVE DIAGNOSIS: Right subtrochanteric/peritrochanteric femur fracture. POSTOPERATIVE DIAGNOSIS: Right subtrochanteric/peritrochanteric femur fracture. PROCEDURE PERFORMED: Open reduction and internal fixation with an intramedullary device of the right femur. SURGEON: Blue Preciado MD PELLETIZER TENDER: Staff. ANESTHESIA: General endotracheal anesthesia. BLOOD LOSS: 100 mL. COMPLICATIONS: None. IMPLANTS: A 240 mm nail, 95 mm lag screw, 30 mm interfrag screw and the nail was 10 x 240 mm. The nail was called in-trauma, 10 x 240 with a 95 mm lag screw and a 30 mm distal screw. FINDINGS: The fracture was difficult to reduce. I used the cephalomedullary screw incision to use as a window for reduction, helping me to reduce the fracture. I then went up proximally and finished the case. INDICATIONS FOR PROCEDURE: A 74-year-old with peritrochanteric femur fracture. She was seen, cleared, opted for surgery. PROCEDURE IN DETAIL: After informed consent was obtained, she was brought into the operating room, anesthesia was induced. She was placed on the [employer] table, well-padded [employer] boots. Peroneal posts placed. Left leg was in a well leg garza with no undue stress to neurovascular structures. Right leg was prepped and draped in the usual surgical sterile fashion. Traction was applied and x-rays verified near reduction. The leg was then prepped and draped. Incision was made and I attempted to pass the awl into the tip of the trochanter and it would not advance and get reduced, so then I made the lateral incision for the lag screw about 4 cm long and using reduction clamps and my finger, I was able to get the fracture partially reduced and get the guidewire down. Once this reduction was held by the forceps, I used the awl again, got my starting point and passed the guidewire. Stepwise opening reamer was then used. Stepwise reaming was followed by to an 11 mm reamer, passed a 10 x 240 mm nail. The 240 mm nail had a targeted distal interlock and so, it was utilized for that reason. I then proceeded to drill the lag screw, measured it, passed the screw and compressed it. This was followed by distal interlock, which was done and checked under fluoroscopy by making an incision, trocar drilling, measuring and placing the screw. AP and lateral views were obtained, showing the nail was in good position. The fracture was reduced and everything appeared to be in good condition. At this point, thorough irrigation ensued followed by closure with #1 Vicryl, 2-0 Vicryl, melanie in the skin. Sterile dressings were placed. The patient tolerated the procedure well and was transferred to recovery room in stable condition. PLAN: Plan for the patient is going to be range of motion, pain control. I will start DVT prophylaxis as well and she can be discharged any time from orthopedic standpoint. TID: [id number] RECEIPT: [id number]
[2024-10-04] MEDS: APIXaban 2.5 MG TABLET PO SCH (21:28)
[2024-10-05] VITALS (9 sets, daily range): BP systolic 107–133; BP diastolic 50–74; PULSE 69–97; RESP 15–20; TEMP 75–98.9; O2SAT 97–98
[2024-10-05 06:11] LABS: HIV SCREEN 4TH GENERATION Non Reactive (Non Reactive)
[2024-10-05] MEDS: CA 600MG+VIT D 400 UNIT TAB 1 TAB TABLET PO SCH (08:41)
[2024-10-05] MEDS: atorVAStatin 10 MG TABLET PO SCH (08:41)
[2024-10-05] MEDS: ceTIRIzine HCL 5 MG TABLET PO SCH (08:49)
[2024-10-05] MEDS ORDERED: monteLUKAST sodIUM 10 MG TAB PO SCH (09:00)
[2024-10-05 09:11] LABS: BASOPHILS # (AUTO) 0.01 K/uL (0.00-0.20); BASOPHILS % (AUTO) 0.1 % (0.0-5.0); IMMATURE GRANULOCYTE ABSOLUTE 0.04 K/uL (0-1); LYMPHOCYTES # (AUTO) 1.2 K/uL (1.0-4.8); MEAN CORPUSCULAR HGB CONC 33.5 g/dL (32.0-36.0); MEAN CORPUSCULAR VOLUME 98.5 fL (79-99); MONOCYTES # (AUTO) 0.6 K/uL (0.1-1.0); MONOCYTES % (AUTO) 7.6 % (3.0-13.0); NEUTROPHILS # (AUTO) 5.7 K/uL (1.8-7.7); NEUTROPHILS % (AUTO) 75.8 % (40.0-77.0); PLATELET COUNT (AUTO) 182 K/uL (130-400); RED BLOOD CELL COUNT(AUTO) 2.64 MIL/uL (4.00-5.50); RED CELL DISTRIBUTION WIDTH 12.3 % (11.0-15.5); WHITE BLOOD COUNT (AUTO) 7.5 K/uL (4.8-10.8)
[2024-10-05 09:25] LABS: CREATININE 0.5 mg/dL (0.5-1.0)
--- NOTE | 2024-10-05 15:53 | HMCIMG ---
RIBS UNILAT 2V LT REASON: Left sided rib pain post fall TECHNIQUE: 5 views were obtained. FINDINGS: There is no evidence of fracture or dislocation. Underlying lung appears clear. The soft tissues appear unremarkable. There is no evidence of a radiopaque foreign body. IMPRESSION: 1. Negative left rib series.
--- NOTE | 2024-10-05 16:35 | NUR ---
CM NOTE: [facility] ACCEPTANCE CM SPOKE TO MARIA DE JESUS W/MARGO, PT HAS ACCEPTANCE FOR TOMORROW, PT NEEDED TO COMPLETE 3RD MIDNIGHT TONIGHT PRIOR TO TRANSFER. REP AWARE PT WILL NEED FACILITY VAN FOR TRANSFER. EMS FILLED OUT IN CASE NEEDED, PENDING TO FAX W/CURRENT DATE ONCE PT READY TO DC. PRIMARY NURSE KATHY AWARE. DR ARREGUIN AWARE. CM TO CONTINUE TO FOLLOW UP. Addendum: 10/05/24 at 1636 by CHASE BONNER LVN CM Amended: Links added.
--- NOTE | 2024-10-05 18:28 | PN ---
[facility] PROGRESS NOTE Date of Service: Oct 05, 2024 Time of Service: 09:19 SUBJECTIVE: This is a 74-year-old female presents in ER with right hip pain secondary to mechanical fall. Apparently patient was walking with her cane and lost balance and fell on her left side however she felt a pop on her right side. Patient presents in ED with chief complaints of right hip pain stated 10/10 on pain scale severity severe aggravated factors movement. Alleviating factors none. ER workup was consistent with right proximal femur fracture. Orthopedic was consulted. Patient is seen in ED15 patient is fully awake alert oriented x3. 10/04/2024: Patient is going ORIF of the right subtrochanteric femur fracture secondary to mechanical fall today. We will start Caltrate after surgery and manage pain as needed. Home meds reconciled, clopidogrel still on hold. 10/05/2024: Patient is day 1 post ORIF of the right subtrochanteric femur fracture secondary to mechanical fall. She is doing well, tolerating soft diet and will be advanced. PT has been ordered. Patient complains of left sided rib pain from fall, we will order an Xray. Patient started on Eliquis 2.5 BID. Hb at 8.7, we will continue to monitor. WBC normal at 7.5, continued on Cefazolin 1g. Calcium low at 7.4, will continue Caltrate. All other labs relative unremarkable. Patient is on Prolia at home. Patient has been accepted to SNF, will be transferred tomorrow. REVIEW OF SYSTEMS A14 point ROS was obtained all relevant positive with documented otherwise ROS negative PHYSICAL EXAM GENERAL APPEARANCE: The patient is awake, alert, and oriented, in no acute cardiopulmonary distress. NEUROLOGICAL: Cranial nerves II-XII grossly intact. Motor is 5/5 in bilateral upper and lower extremities proximal to distal. No sensory deficits. HEENT: Face is symmetric. Pupils are equal and reactive. Extraocular movements are intact. NECK: Supple. No JVD. No thyromegaly. No submental, submandibular, pre- /postauricular, occipital or supraclavicular lymphadenopathy. CHEST: Normal chest expansion. No Telemetry. LUNGS: Absence of any rales, rhonchi or any wheezing. CARDIOVASCULAR: Regular. S1 and S2 normal. No appreciable rubs, murmurs or gallops. ABDOMEN: Soft, nontender, and nondistended. There is no rebound, voluntary guarding, or rigidity. : Deferred. No Hou. EXTREMITIES: Non-edematous and not cyanotic. No clubbing. Good capillary refill. Deformity right lower extremity SKIN: No skin breakdown. Vital Signs (last 8hr) Date Time Temp Pulse Resp B/P (MAP) Pulse Ox O2 Delivery O2 Flow Rate FiO2 10/05/24 16:00 98.8 97 17 125/69 100 Nasal Cannula 2.0 10/05/24 12:00 98.8 84 16 118/55 88 Room Air 0.0 LABS: Laboratory: Test 10/05/24 08:40 10/04/24 04:40 Range/Units White Blood Count 7.5 4.8-10.8 K/uL Red Blood Count 2.64 L 4.00-5.50 MIL/uL Hemoglobin 8.7 #L 12.0-16.0 g/dL Hematocrit 26.0 #L 36-48 % Mean Corpuscular Volume 98.5 79-99 fL Mean Corpuscular Hemoglobin 33.0 27.0-33.0 pg Mean Corpuscular Hemoglobin Concent 33.5 32.0-36.0 g/dL Red Cell Distribution Width 12.3 11.0-15.5 % Platelet Count 182 # 130-400 K/uL Mean Platelet Volume 10.1 7.5-10.5 fL Immature Granulocyte % (Auto) 0.5 0-1 % Neutrophils (%) (Auto) 75.8 40.0-77.0 % Lymphocytes (%) (Auto) 16.0 L 21.0-51.0 % Monocytes (%) (Auto) 7.6 3.0-13.0 % Eosinophils (%) (Auto) 0.0 0.0-8.0 % Basophils (%) (Auto) 0.1 0.0-5.0 % Neutrophils # (Auto) 5.7 1.8-7.7 K/uL Lymphocytes # (Auto) 1.2 1.0-4.8 K/uL Monocytes # (Auto) 0.6 0.1-1.0 K/uL Eosinophils # (Auto) 0.00 0.00-0.70 K/uL Basophils # (Auto) 0.01 0.00-0.20 K/uL Absolute Immature Granulocyte (auto 0.04 0-1 K/uL Nucleated Red Blood Cells 0.0 0.0-0.19 % Sodium Level 137 136-145 mmol/L Potassium Level 4.0 3.5-5.1 mmol/L Chloride Level 105 101-111 mmol/L Carbon Dioxide Level 28 21-32 mmol/L Blood Urea Nitrogen 10 7-18 mg/dL Creatinine 0.5 0.5-1.0 mg/dL Glomerular Filtration Rate Calc 98 >90 mL/min Random Glucose 134 H 70-105 mg/dL Total Calcium 7.4 L 8.5-10.1 mg/dL Magnesium Level 2.10 1.80-2.40 mg/dL Total Bilirubin 1.0 0.2-1.0 mg/dL Aspartate Amino Transf (AST/SGOT) 25 10-37 U/L Alanine Aminotransferase (ALT/SGPT) 26 12-78 U/L Alkaline Phosphatase 43 L 50-136 U/L Total Protein 6.2 6.0-8.3 g/dL Albumin 3.2 L 3.5-5.0 g/dL HIV (1&2) Ag and Ab, 4th Generation Non Reactive Non Reactive Current Medications Medications (Trade) Dose Ordered Sig/Vel Route PRN Reason Start Time Stop Time Status Last Admin Dose Admin Acetaminophen (TYLenol 325MG TAB) 650 mg Q4H PRN PO TEMPERATURE GREATER THAN 101.5 10/03/24 13:30 11/02/24 13:29 Acetaminophen/ Hydrocodone Bitart (NORco 5/325MG) 1 tab Q6H PRN PO MODERATE PAIN (4-6) 10/03/24 13:30 10/08/24 13:29 10/05/24 08:40 1 TAB Apixaban (EliquIS 2.5 mg) 2.5 mg BID PO 10/04/24 21:00 11/03/24 20:59 10/05/24 08:41 2.5 MG Atorvastatin Calcium (LIPItor 10MG) 10 mg DAILY PO 10/05/24 09:00 10/05/24 15:22 DC 10/05/24 08:41 10 MG Atorvastatin Calcium (LIPItor 10MG) 10 mg HS PO 10/06/24 21:00 11/04/24 08:59 Calcium/Vitamin D (Caltrate D 600/ 400 Tab) 1 tab DAILY PO 10/05/24 09:00 11/04/24 08:59 10/05/24 08:41 1 TAB Cefazolin Sodium (ANCEF 1 gm vial) 1 gm Q8H IVPB 10/04/24 19:00 10/05/24 18:59 10/05/24 12:14 1 GM Cetirizine HCl (ZYRtec 5 MG TABLET) 10 mg DAILY PO 10/05/24 09:00 11/04/24 08:59 10/05/24 08:49 10 MG Famotidine (Pepcid 20mg Tab) 20 mg BID PO 10/03/24 21:00 11/02/24 20:59 10/05/24 08:40 20 MG Hydralazine HCl (APRESOLine 20MG INJ) 5 mg Q4H PRN IV ADMINISTER FOR SBP > 160 10/03/24 13:30 11/02/24 13:29 Hydromorphone HCl (DiLAUDid 0.5MG INJ) 0.5 mg Q4H PRN IVP SEVERE PAIN (7-10) 10/03/24 13:30 10/08/24 13:29 10/05/24 17:16 0.5 MG Lactulose (Constulose 20gm/ 30ml Udcup) 20 gm BID PRN PO CONSTIPATION 10/03/24 13:30 11/02/24 13:29 Montelukast Sodium (SinguLAIR) 10 mg DAILY PO 10/05/24 09:00 10/05/24 15:22 DC Montelukast Sodium (SinguLAIR) 10 mg HS PO 10/05/24 21:00 11/04/24 08:59 Sodium Chloride 1,000 ml @ 75 mls/hr [id number] IV 10/03/24 13:30 11/02/24 13:29 10/05/24 03:56 75 MLS/HR DIAGNOSTICS / RADIOLOGY: PATIENT: KORI ADAIR MR#: [id number] : 1950 SEX: F AGE: 74 LOCATION: 4DH ORDER 1317 STATUS: ADM IN REPORT#: [id number] SERVICE 1311 REASON: POST OP ORDERING PHYSICIAN: BRITTNEY PATEL MD PROCEDURE: HIP U 2V R - HIP UNILAT 2-3VW RIGHT HIP UNILAT 2-3VW RIGHT REASON: POST OP COMPARISON: None TECHNIQUE: 3 views were performed of the right hip and proximal femur. FINDINGS: There is fixation hardware in place. There are surgical changes in the adjacent soft tissues. IMPRESSION: 1. Document station of ORIF procedure right hip fracture. DICTATED BY: DOUG GREENWOOD MD DATE: 10/04/24 1401 ELECTRONICALLY SIGNED BY: DOUG GREENWOOD MD DATE: 10/04/24 1405 PATIENT: KORI ADAIR MR#: [id number] : 1950 SEX: F AGE: 74 LOCATION: H ORDER 0757 STATUS: ADM IN REPORT#: [id number] SERVICE REASON: ORIF RIGHT FEMUR FX, SX ORDERING PHYSICIAN: BRITTNEY PATEL MD PROCEDURE: FEM RT 2 - FEMUR 2VW RIGHT FEMUR 2VW RIGHT REASON: ORIF RIGHT FEMUR FX, SX TECHNIQUE: 11 surgical spot views were obtained. These document operative reduction and internal fixation of proximal right femur fracture. Fluoroscopy time was 110.2 seconds. IMPRESSION: 1. Documentation of operative reduction and internal fixation proximal right hip fracture. DICTATED BY: DOUG GREENWOOD MD DATE: 10/04/24 1339 ELECTRONICALLY SIGNED BY: DOUG GREENWOOD MD DATE: 10/04/24 1342 PATIENT: KORI ADAIR MR#: [id number] : 1950 SEX: F AGE: 74 LOCATION: ED ORDER 1048 STATUS: REG ER REPORT#: [id number] SERVICE 1047 REASON: LEFT SIDE CHEST PAIN ORDERING PHYSICIAN: ROSE MAST PROCEDURE: CXR1VW - CHEST 1VW CHEST 1VW REASON: LEFT SIDE CHEST PAIN COMPARISON: 03/02/2023 FINDINGS: Single view of the chest was obtained. Lungs are clear. Heart size is normal. There is no pulmonary vascular congestion. Mediastinum and bony thorax appear unremarkable. IMPRESSION: 1. Normal single view chest x-ray. DICTATED BY: DOUG GREENWOOD MD DATE: 10/03/241125 ELECTRONICALLY SIGNED BY: DOUG GREENWOOD MD DATE: 10/03/241128 PATIENT: KORI ADAIR MR#: [id number] : 1950 SEX: F AGE: 74 LOCATION: [facility] ORDER 103 STATUS: REG ER [facility] REPORT#: [id number] SERVICE 103 REASON: fall ORDERING PHYSICIAN: ROSE MAST PROCEDURE: HIP U 2V R - HIP UNILAT 2-3VW RIGHT Exam: AP pelvis and right hip 3 views. Reason: Fall, trauma. FINDINGS: There is an angulated mildly displaced fracture of the right proximal femoral shaft several centimeters below the intertrochanteric region. There is varus angulation of the distal shaft. Bones of the pelvis appear intact. There is fixation hardware in the proximal left femur consistent with remote previous fracture fixation. IMPRESSION: 1. Subtrochanteric angulated and mildly displaced fracture proximal right femur. DICTATED BY: DOUG GREENWOOD MD DATE: 10/03/241123 ELECTRONICALLY SIGNED BY: DOUG GREENWOOD MD DATE: 10/03/241127 PATIENT: KORI ADAIR MR#: [id number] : 1950 SEX: F AGE: 74 LOCATION: [facility] ORDER 103 STATUS: [facility] REPORT#: [id number] SERVICE 103 REASON: fall ORDERING PHYSICIAN: ROSE MAST PROCEDURE: FEM RT 2 - FEMUR 2VW RIGHT FEMUR 2VW RIGHT REASON: fall TECHNIQUE: 4 views were obtained. FINDINGS: There is a fracture of the right femoral shaft several centimeters below the intertrochanteric region. There is mild medial displacement of the distal shaft as well as varus angulation. Remainder of the femur appears intact. IMPRESSION: 1. Fractured proximal right femoral shaft. DICTATED BY: DOUG GREENWOOD MD DATE: 10/03/241125 ELECTRONICALLY SIGNED BY: DOUG GREENWOOD MD DATE: 10/03/241127 ASSESSMENT: Status post ORIF of right subtrochanteric femur fracture. Right proximal femur fracture secondary to mechanical fall Chronic problems Hyperlipidemia, osteoporosis TIA on Plavix every other day PLAN: IVF: NS at 75 mL/hour DVT prophylaxis SCDs, Eliquis 2.5 BID GI prophylaxis: Famotidine 20mg qd pain management for adequate pain control Antibiotics: Cefazolin 1g Replace electrolytes as needed as per protocol to keep potassium above 4.0 magnesium 2.0. Continue PT ATTESTATION BY PHYSICIAN I have seen and examined the patient. I reviewed the documentation, medical decision making, and treatment plan as noted by the resident provider above. I agree with the findings and plan of care. Tan Lyons MD, NEHA MD Oct 05, 2024 18:28
[2024-10-05] MEDS: monteLUKAST sodIUM 10 MG TAB PO SCH (20:02)
--- NOTE | 2024-10-05 20:15 | PN ---
TIME: At approximately 11 a.m. SUBJECTIVE: The patient is sitting in bed, doing well. She is going to start working with therapy today. OBJECTIVE: VITAL SIGNS: She is afebrile. Vital signs stable. GENERAL: On exam, she is awake, alert, oriented and able to communicate. EXTREMITIES: Right lower extremity has some pain. Compartments are soft. She can flex and extend her toes and ankles without difficulty. Her calf is nontender to palpation. Dressing is clean, dry and intact. IMPRESSION: Status post IM nail for a subtrochanteric femur fracture. PLAN: She will be weightbearing as tolerated, pain control, DVT prophylaxis for 21 days and we will see her back in clinic in 2 weeks. She will sign off at this point. TID: [id number] RECEIPT: [id number]
[2024-10-06 01:23] VITALS: BP 120/57; PULSE 83; RESP 19; TEMP 99.7
[2024-10-06 04:42] VITALS: BP 123/57; PULSE 84; RESP 20; TEMP 98.2
[2024-10-06 05:43] LABS: BASOPHILS # (AUTO) 0.03 K/uL (0.00-0.20); BASOPHILS % (AUTO) 0.4 % (0.0-5.0); EOSINOPHILS # (AUTO) 0.09 K/uL (0.00-0.70); EOSINOPHILS % (AUTO) 1.2 % (0.0-8.0); HEMATOCRIT 22.9 % (36-48); IMMATURE GRANULOCYTE ABSOLUTE 0.02 K/uL (0-1); LYMPHOCYTES # (AUTO) 1.2 K/uL (1.0-4.8); MEAN CORPUSCULAR HEMOGLOBIN 32.2 pg (27.0-33.0); MEAN CORPUSCULAR HGB CONC 32.8 g/dL (32.0-36.0); MEAN CORPUSCULAR VOLUME 98.3 fL (79-99); MONOCYTES # (AUTO) 0.8 K/uL (0.1-1.0); MONOCYTES % (AUTO) 10.5 % (3.0-13.0); NEUTROPHILS # (AUTO) 5.5 K/uL (1.8-7.7); NEUTROPHILS % (AUTO) 71.6 % (40.0-77.0); PLATELET COUNT (AUTO) 175 K/uL (130-400); RED BLOOD CELL COUNT(AUTO) 2.33 MIL/uL (4.00-5.50); RED CELL DISTRIBUTION WIDTH 12.4 % (11.0-15.5); WHITE BLOOD COUNT (AUTO) 7.7 K/uL (4.8-10.8)
[2024-10-06 05:48] LABS: CREATININE 0.6 mg/dL (0.5-1.0); POTASSIUM 3.5 mmol/L (3.5-5.1)
[2024-10-06 08:00] VITALS: BP 108/60; PULSE 83; RESP 18; TEMP 99.5
[2024-10-06 08:45] VITALS: O2SAT 97
[2024-10-06] MEDS: LACTULOSE 20 GM/30 ML UDCUP PO PRN (09:47)
[2024-10-06 12:00] VITALS: BP 128/71; PULSE 76; RESP 18; TEMP 98.7
--- NOTE | 2024-10-06 12:30 | HMCIMG ---
CHEST 1VW REASON: pain on inspiration COMPARISON: 10/03/2024 FINDINGS: Single view of the chest was obtained. Lungs are clear. Heart size is normal. There is no pulmonary vascular congestion. Mediastinum and bony thorax appear unremarkable. IMPRESSION: 1. Normal single view chest x-ray.
--- NOTE | 2024-10-06 13:29 | DS ---
Discharge Summary Hospital Course Summary: This is a 74-year-old female presents in ER with right hip pain secondary to mechanical fall. Apparently patient was walking with her cane and lost balance and fell on her left side however she felt a pop on her right side. Patient presents in ED with chief complaints of right hip pain stated 10/10 on pain scale severity severe aggravated factors movement. Alleviating factors none. ER workup was consistent with right proximal femur fracture. Orthopedic was consulted. Patient is seen in ED15 patient is fully awake alert oriented x3. 10/04/2024: Patient is going ORIF of the right subtrochanteric femur fracture secondary to mechanical fall today. We will start Caltrate after surgery and manage pain as needed. Home meds reconciled, clopidogrel still on hold. 10/05/2024: Patient is day 1 post ORIF of the right subtrochanteric femur fracture secondary to mechanical fall. She is doing well, tolerating soft diet and will be advanced. PT has been ordered. Patient complains of left sided rib pain from fall, we will order an Xray. Patient started on Eliquis 2.5 BID. Hb at 8.7, we will continue to monitor. WBC normal at 7.5, continued on Cefazolin 1g. Calcium low at 7.4, will continue Caltrate. All other labs relative unremarkable. Patient is on Prolia at home. 10/06/2024: Patient has been accepted to SNF, will be transferred today. She will continue Eliquis 2.5 bid for 21 days per ortho. She will continue PT, weightbearing as tolerated. We completed a repeat chest xray due to patient complaining of pain on inspiration. CXR clear, no pulmonary congestion. This is most likely musculoskeletal due to fall, patient has trouble raising left arm above 90 degrees. Xray of ribs, clear of any fractures or dislocation. Hb down to 7.5 from 8.7, SNF will continue to monitor. [employer]er(s): Orthopedic surgery Procedure(s): PATIENT: KORI ADAIR MR#: [id number] : 1950 SEX: F AGE: 74 LOCATION: [facility] ORDER 1121 STATUS: ADM IN REPORT#: [id number] SERVICE 1119 REASON: pain on inspiration ORDERING PHYSICIAN: RODRÍGUEZ BHATTI MD PROCEDURE: CXR1VW - CHEST 1VW CHEST 1VW REASON: pain on inspiration COMPARISON: 10/03/2024 FINDINGS: Single view of the chest was obtained. Lungs are clear. Heart size is normal. There is no pulmonary vascular congestion. Mediastinum and bony thorax appear unremarkable. IMPRESSION: 1. Normal single view chest x-ray. DICTATED BY: DOUG GREENWOOD MD DATE: 10/06/24 1224 ELECTRONICALLY SIGNED BY: DOUG GREENWOOD MD DATE: 10/06/24 1230 PATIENT: KORI ADAIR MR#: [id number] : 1950 SEX: F AGE: 74 LOCATION: [facility] ORDER 1345 STATUS: ADM IN REPORT#: [id number] SERVICE 1338 REASON: Left sided rib pain post fall ORDERING PHYSICIAN: RODRÍGUEZ BHATTI MD PROCEDURE: RIB UNI LT - RIBS UNILAT 2V LT RIBS UNILAT 2V LT REASON: Left sided rib pain post fall TECHNIQUE: 5 views were obtained. FINDINGS: There is no evidence of fracture or dislocation. Underlying lung appears clear. The soft tissues appear unremarkable. There is no evidence of a radiopaque foreign body. IMPRESSION: 1. Negative left rib series. DICTATED BY: DOUG GREENWOOD MD DATE: 10/05/24 1551 ELECTRONICALLY SIGNED BY: DOUG GREENWOOD MD DATE: 10/05/24 1553 PATIENT: KORI ADAIR MR#: [id number] : 1950 SEX: F AGE: 74 LOCATION: [facility] ORDER 1317 STATUS: ADM IN REPORT#: [id number] SERVICE 1311 REASON: POST OP ORDERING PHYSICIAN: BRITTNEY PRECIADO MD PROCEDURE: HIP U 2V R - HIP UNILAT 2-3VW RIGHT HIP UNILAT 2-3VW RIGHT REASON: POST OP COMPARISON: None TECHNIQUE: 3 views were performed of the right hip and proximal femur. FINDINGS: There is fixation hardware in place. There are surgical changes in the adjacent soft tissues. IMPRESSION: 1. Document station of ORIF procedure right hip fracture. DICTATED BY: DOUG GREENWOOD MD DATE: 10/04/241400 ELECTRONICALLY SIGNED BY: DOUG GREENWOOD MD DATE: 10/04/241404 PATIENT: KORI ADAIR MR#: [id number] : 1950 SEX: F AGE: 74 LOCATION: [facility] ORDER 0757 STATUS: ADM IN REPORT#: [id number] SERVICE REASON: ORIF RIGHT FEMUR FX, SX ORDERING PHYSICIAN: BRITTNEY PRECIADO MD PROCEDURE: FEM RT 2 - FEMUR 2VW RIGHT FEMUR 2VW RIGHT REASON: ORIF RIGHT FEMUR FX, SX TECHNIQUE: 11 surgical spot views were obtained. These document operative reduction and internal fixation of proximal right femur fracture. Fluoroscopy time was 110.2 seconds. IMPRESSION: 1. Documentation of operative reduction and internal fixation proximal right hip fracture. DATE OF PROCEDURE: 10/04/2024 PREOPERATIVE DIAGNOSIS: Right subtrochanteric/peritrochanteric femur fracture. POSTOPERATIVE DIAGNOSIS: Right subtrochanteric/peritrochanteric femur fracture. PROCEDURE PERFORMED: Open reduction and internal fixation with an intramedullary device of the right femur. SURGEON: Brittney Preciado MD PV DESIGN AND INSTALLATION TECHNICIAN: Staff. ANESTHESIA: General endotracheal anesthesia. BLOOD LOSS: 100 mL. COMPLICATIONS: None. IMPLANTS: A 240 mm nail, 95 mm lag screw, 30 mm interfrag screw and the nail was 10 x 240 mm. The nail was called in-trauma, 10 x 240 with a 95 mm lag screw and a 30 mm distal screw. FINDINGS: The fracture was difficult to reduce. I used the cephalomedullary screw incision to use as a window for reduction, helping me to reduce the fracture. I then went up proximally and finished the case. INDICATIONS FOR PROCEDURE: A 74-year-old with peritrochanteric femur fracture. She was seen, cleared, opted for surgery. PROCEDURE IN DETAIL: After informed consent was obtained, she was brought into the operating room, anesthesia was induced. She was placed on the Munday table, well-padded Munday boots. Peroneal posts placed. Left leg was in a well leg garza with no undue stress to neurovascular structures. Right leg was prepped and draped in the usual surgical sterile fashion. Traction was applied and x-rays verified near reduction. The leg was then prepped and draped. Incision was made and I attempted to pass the awl into the tip of the trochanter and it would not advance and get reduced, so then I made the lateral incision for the lag screw about 4 cm long and using reduction clamps and my finger, I was able to get the fracture partially reduced and get the guidewire down. Once this reduction was held by the forceps, I used the awl again, got my starting point and passed the guidewire. Stepwise opening reamer was then used. Stepwise reaming was followed by to an 11 mm reamer, passed a 10 x 240 mm nail. The 240 mm nail had a targeted distal interlock and so, it was utilized for that reason. I then proceeded to drill the lag screw, measured it, passed the screw and compressed it. This was followed by distal interlock, which was done and checked under fluoroscopy by making an incision, trocar drilling, measuring and placing the screw. AP and lateral views were obtained, showing the nail was in good position. The fracture was reduced and everything appeared to be in good condition. At this point, thorough irrigation ensued followed by closure with #1 Vicryl, 2-0 Vicryl, melanie in the skin. Sterile dressings were placed. The patient tolerated the procedure well and was transferred to recovery room in stable condition. PLAN: Plan for the patient is going to be range of motion, pain control. I will start DVT prophylaxis as well and she can be discharged any time from orthopedic standpoint. TID: [id number] RECEIPT: [id number] Electronically Signed by: BRITTNEY PRECIADO MD10/06/24 1239 Electronically Co-Signed by: DICTATED BY: DOUG GREENWOOD MD DATE: 10/04/24 1339 ELECTRONICALLY SIGNED BY: DOUG GREENWOOD MD DATE: 10/04/24 1347 PATIENT: KORI ADAIR MR#: [id number] : 1950 SEX: F AGE: 74 LOCATION: [facility] ORDER 1048 STATUS: REG ER REPORT#: [id number] SERVICE 104 REASON: LEFT SIDE CHEST PAIN ORDERING PHYSICIAN: ROSE MAST PROCEDURE: CXR1VW - CHEST 1VW CHEST 1VW REASON: LEFT SIDE CHEST PAIN COMPARISON: 03/02/2023 FINDINGS: Single view of the chest was obtained. Lungs are clear. Heart size is normal. There is no pulmonary vascular congestion. Mediastinum and bony thorax appear unremarkable. IMPRESSION: 1. Normal single view chest x-ray. DICTATED BY: DOUG GREENWOOD MD DATE: 10/03/241125 ELECTRONICALLY SIGNED BY: DOUG GREENWOOD MD DATE: 10/03/241128 PATIENT: KORI ADAIR MR#: [id number] : 1950 SEX: F AGE: 74 LOCATION: ED ORDER 103 [facility] REPORT#: [id number] SERVICE 103 REASON: fall ORDERING PHYSICIAN: ROSE MAST PROCEDURE: HIP U 2V R - HIP UNILAT 2-3VW RIGHT Exam: AP pelvis and right hip 3 views. Reason: Fall, trauma. FINDINGS: There is an angulated mildly displaced fracture of the right proximal femoral shaft several centimeters below the intertrochanteric region. There is varus angulation of the distal shaft. Bones of the pelvis appear intact. There is fixation hardware in the proximal left femur consistent with remote previous fracture fixation. IMPRESSION: 1. Subtrochanteric angulated and mildly displaced fracture proximal right femur. DICTATED BY: DOUG GREENWOOD MD DATE: 10/03/241123 ELECTRONICALLY SIGNED BY: DOUG GREENWOOD MD DATE: 10/03/241127 PATIENT: KORI ADAIR MR#: [id number] : 1950 SEX: F AGE: 74 LOCATION: [facility] ORDER 103 STATUS: REG ER [facility] REPORT#: [id number] SERVICE 1031 REASON: fall ORDERING PHYSICIAN: ROSE MAST PROCEDURE: FEM RT 2 - FEMUR 2VW RIGHT FEMUR 2VW RIGHT REASON: fall TECHNIQUE: 4 views were obtained. FINDINGS: There is a fracture of the right femoral shaft several centimeters below the intertrochanteric region. There is mild medial displacement of the distal shaft as well as varus angulation. Remainder of the femur appears intact. IMPRESSION: 1. Fractured proximal right femoral shaft. DICTATED BY: DOUG GREENWOOD MD DATE: 10/03/241125 ELECTRONICALLY SIGNED BY: DOUG GREENWOOD MD DATE: 10/03/241127 ASSESSMENT: Status post ORIF of right subtrochanteric femur fracture. Right proximal femur fracture secondary to mechanical fall Chronic problems Hyperlipidemia, osteoporosis TIA on Plavix every other day Assessment/Plan: ASSESSMENT: Status post ORIF of right subtrochanteric femur fracture. Right proximal femur fracture secondary to mechanical fall Chronic problems Hyperlipidemia, osteoporosis TIA on Plavix every other day Discharge Instructions: Continue PT, weight bearing as tolerated Continue apixaban 2.5 twice daily for 21 days. Follow up with PCP after discharge. Home Medications: Reported Medications Cetirizine HCl (Zyrtec) 10 Mg Capsule, 1 CAP PO DAILY for allergy symptoms for 30 Days, #30 CAP 0 Refills 10/03/24 Atorvastatin Calcium (Atorvastatin Calcium) 10 Mg Tablet, 1 TAB PO DAILY 03/06/23 Discontinued Reported Medications Montelukast Sodium (Singulair 10Mg) 10 Mg Tab, 1 TAB PO DAILY for 30 Days, #30 TAB 0 Refills 10/03/24 Clopidogrel Bisulfate (Clopidogrel) 75 Mg Tablet, 1 TAB PO DAILY 03/06/23 Pantoprazole Sodium (Pantoprazole Sodium) 40 Mg Tablet.dr, 1 TAB PO DAILY 03/06/23 Discontinued Scripts Acetaminophen with Codeine (Acetaminophen-Cod #3 Tablet) 1 Each Tablet, 1 EACH PO DAILY for 5 Days, #10 TAB Prov:AJCKIE SPEAR NP 03/08/23 Time spent arranging discharge: 1-30 minutes ATTESTATION BY PHYSICIAN I have seen and examined the patient. I reviewed the documentation, medical decision making, and treatment plan as noted by the resident provider above. I agree with the findings and plan of care. Bharat Laguna MD, NEHA MD Oct 06, 2024 13:29
--- NOTE | 2024-10-06 14:06 | NUR ---
DISCHARGE DISCHARGE ORDERS FOR PATIENT TO BE DISCHARGED HOME OBTAINED. DISCHARGE INSTRUCTIONS AND DOCUMENTATION GIVEN TO PATIENT AT BEDSIDE. VOICED UNDERSTANDING. IV DISCONTINUED, CATHETER INTACT, NO S/S OF INFECTION NOTED TO AREA. PATIENT TOLERATED WELL. BANDS REMOVED. PENDING ANTENNA INSTALLER FROM FACILITY.
--- NOTE | 2024-10-06 14:30 | NUR ---
DISCHARGE 1410 REPORT CALLED IN TO [facility], SPOKE WITH DAGOBERTO MARMOLEJO AND PROVIDED REPORT ON PATIENT'S CONDITION AND MD'S ORDERS. NO ORDERS FOR DRESSING CHANGE IN PLACE BY DR. JEAN BAPTISTE AT THIS TIME. MRS. MARMOLEJO VOICED UNDERSTANDING. PENDING FACILITY TRANSPORTATION.
--- NOTE | 2024-10-06 14:38 | NUR ---
SURGICAL DRESSING. SURGICAL DRESSING DRY AND INTACT, NO S/S OF INFECTION NOTED TO SITE. CONTACTED DR. PATEL FOR ANY ORDERS REGARDING DRESSING. TORB DO NOT REMOVE DRESSING UNTIL FOLLOW UP APPOINTMENT WITH DR. PATEL IN 2 WEEKS. NOTIFIED MRS. JALEEL RN WITH HNR. VOICED UNDERSTANDING. NO OTHER ORDERS GIVEN.
--- NOTE | 2024-10-06 16:34 | NUR ---
DISCHARGE PATIENT PENDING FACILITY VAN FOR TRANSPORTATION TO [facility]. CONTACTED [facility], SPOKE WITH BRENNA WHO CONFIRMED [facility] PRE[facility] FORESTER ON HIS WAY FOR PATIENT. WILL CONTINUE TO MONITOR. PENDING ARRIVAL.
--- NOTE | 2024-10-06 17:00 | NUR ---
DISCHARGE PATIENT LEFT VIA WHEELCHAIR ACCOMPANIED BY FACILITY DRUG ENFORCEMENT AGENT. NO S/S OF DISTRESS NOTED.
--- NOTE | 2024-10-06 18:50 | DS ---
Discharge Summary Operations Administrative Assistant(s): Orthopedic surgery Assessment/Plan: ASSESSMENT: Status post ORIF of right subtrochanteric femur fracture. Right proximal femur fracture secondary to mechanical fall Chronic problems Hyperlipidemia, osteoporosis TIA on Plavix every other day PLAN: IVF: NS at 75 mL/hour DVT prophylaxis SCDs, Eliquis 2.5 BID GI prophylaxis: Famotidine 20mg qd pain management for adequate pain control Antibiotics: Cefazolin 1g Replace electrolytes as needed as per protocol to keep potassium above 4.0 magnesium 2.0. Continue PT Home Medications: Reported Medications Cetirizine HCl (Zyrtec) 10 Mg Capsule, 1 CAP PO DAILY for allergy symptoms for 30 Days, #30 CAP 0 Refills 10/03/24 Atorvastatin Calcium (Atorvastatin Calcium) 10 Mg Tablet, 1 TAB PO DAILY 03/06/23 Discontinued Reported Medications Montelukast Sodium (Singulair 10Mg) 10 Mg Tab, 1 TAB PO DAILY for 30 Days, #30 TAB 0 Refills 10/03/24 Clopidogrel Bisulfate (Clopidogrel) 75 Mg Tablet, 1 TAB PO DAILY 03/06/23 Pantoprazole Sodium (Pantoprazole Sodium) 40 Mg Tablet.dr, 1 TAB PO DAILY 03/06/23 Discontinued Scripts Acetaminophen with Codeine (Acetaminophen-Cod #3 Tablet) 1 Each Tablet, 1 EACH PO DAILY for 5 Days, #10 TAB Prov:JACKIE SPEAR NP 03/08/23 Time spent arranging discharge: 1-30 minutes ATTESTATION BY PHYSICIAN I have seen and examined the patient. I reviewed the documentation, medical decision making, and treatment plan as noted by the resident provider above. I agree with the findings and plan of care. Bharat Laguna MD, NEHA MD Oct 06, 2024 18:50
[2024-10-06] MEDS ORDERED: atorVAStatin 10 MG TABLET PO SCH (21:00)
== END 2024-10-06 16:46 | DRG 482 ==
LOC: EDH 10:26 → EDHIP 11:49 → 4DH 14:32
PROVIDERS: ADMIT Internal Medicine; ATTEND Internal Medicine
PROC: 0QS806Z Reposition Right Femoral Shaft with Intramedullary Internal Fixation Device, Open Approach (ICD-10-PCS; principal; 2024-10-04 10:38)
DX: S72.21XA Displaced subtrochanteric fracture of right femur, initial encounter for closed fracture (principal); E78.5 Hyperlipidemia, unspecified; I10 Essential (primary) hypertension; Y93.01 Activity, walking, marching and hiking; M81.0 Age-related osteoporosis without current pathological fracture; Y92.89 Other specified places as the place of occurrence of the external cause; W01.0XXA Fall on same level from slipping, tripping and stumbling without subsequent striking against object, initial encounter; Z82.49 Family history of ischemic heart disease and other diseases of the circulatory system; Y99.8 Other external cause status; Y93.89 Activity, other specified; Z79.01 Long term (current) use of anticoagulants; Z79.899 Other long term (current) drug therapy; Z86.73 Personal history of transient ischemic attack (TIA), and cerebral infarction without residual deficits; Z90.710 Acquired absence of both cervix and uterus
CPT/HCPCS: 36415; 71045; 71100; 73502; 73552; 80048; 80053; 83735; 84484; 85025; 85610; 85730; 86701; 86850; 86900; 86901; 87389; 87390; 93005; 96361; 96374; 96375; 99285; G0378; J0690; J1100; J1171; J2003; J2270; J2405; J2704; J2710; J2795; J3010; J3490; J7030; A4216; A4222; A4223; A4600; A6223; C1769

== ENCOUNTER → 2024-11-28 | Outpatient (CLI) | payer MEDICARE ==
[~2024-11-28] MED LIST changes: -ACET-2079 PO; +CETI10CA5 PO; -CLOP75TA32 PO; -PANT40TA54 PO
--- NOTE | 2024-11-30 10:13 | HMCSR ---
APPROVED REPORT Laterality: Bilateral Indications r09.89 Doppler Spectral Velocity Analysis PSV / EDVPSV / EDV ECA (R) 77 / cm/sECA (L) 68 / cm/s dICA (R) 168 / 61 cm/sdICA (L) 149 / 58 cm/s Vicky (R) 126 / 44 cm/smICA (L) 70 / 28 cm/s pICA (R) 118 / 36 cm/spICA (L) 51 / 12 cm/s dCCA (R) 58 / 17 cm/sdCCA (L) 69 / 21 cm/s mCCA (R) 64 / 17 cm/smCCA (L) 81 / 20 cm/s pCCA (R) 58 / 16 cm/spCCA (L) 85 / 19 cm/s Vert (R) 68 / cm/sVert (L) 69 / cm/s Subl. (R) 98 / cm/sSubl. (L) 98 / cm/s ICA/CCA 2.63ICA/CCA 1.75 Technologist Impression Moderate heterogenous plaque noted in the bilateral carotids. KHRIS highest velocity of 168 cm/s suggestive of 50-69% stenosis. LICA highest velocity of 149 cm/s suggestive of 50-69% stenosis. Bilateral vertebral arteries appear antegrade. Conclusion Moderate heterogenous plaque noted in the bilateral carotids. KHRIS highest velocity of 168 cm/s suggestive of 50-69% stenosis. LICA highest velocity of 149 cm/s suggestive of 50-69% stenosis. Bilateral vertebral arteries appear antegrade. Conclusion Moderate heterogenous plaque noted in the bilateral carotids. KHRIS highest velocity of 168 cm/s suggestive of 50-69% stenosis. LICA highest velocity of 149 cm/s suggestive of 50-69% stenosis. Bilateral vertebral arteries appear antegrade.
== END | disposition home or self-care (01) ==
LOC: SHCH 08:29
PROVIDERS: ATTEND Internal Medicine Cardiovascular Disease
DX: I65.23 Occlusion and stenosis of bilateral carotid arteries (principal); R09.89 Other specified symptoms and signs involving the circulatory and respiratory systems
CPT/HCPCS: 93880

== ENCOUNTER → 2024-12-05 | Outpatient (CLI) | payer MEDICARE ==
--- NOTE | 2024-12-06 09:42 | HMCIMG ---
MAMMO SCREENING BILATERAL HISTORY: Screening mammogram. COMPARISON: 10/05/2023 TECHNIQUE: Bilateral screening mammogram with CAD was performed with craniocaudal and mediolateral oblique projections. FINDINGS: There are scattered areas of fibroglandular density. There is no evidence of a dominant mass, or suspicious microcalcification. There is no evidence of nipple retraction or skin thickening. IMPRESSION: 1. Stable mammogram. Patient was entered into a reminder system with a target due date for their next mammogram. BI-RADS: CATEGORY 2: BENIGN FINDINGS Recommend monthly self breast exam as well as annual clinical examination. A negative x-ray should not delay biopsy if a dominant or clinically suspicious mass is present, since 8-10% of cancers are not identified by mammography. Dense breasts particularly, may obscure an underlying neoplasm. Some of these may be detected clinically and therefore, clinical examination is an essential part of breast evaluation.
== END ==
LOC: RAH 13:07
PROVIDERS: ATTEND Internal Medicine
DX: Z12.31 Encounter for screening mammogram for malignant neoplasm of breast (principal); R92.323 Mammographic fibroglandular density, bilateral breasts
CPT/HCPCS: 77067

== ENCOUNTER → 2025-05-14 | Outpatient (CLI) | payer MEDICARE ==
--- NOTE | 2025-05-15 00:20 | HMCIMG ---
EXAM: CR right Forearm, 2 View. CLINICAL HISTORY: CLOSED FX OF FOREARM COMPARISON: None provided. FINDINGS: BONES: No acute fracture or aggressive appearing osseous lesion. JOINTS: No dislocation. The joint spaces are normal. SOFT TISSUES: The soft tissues are unremarkable. IMPRESSION: No acute osseous abnormality. /[place]las
== END | disposition home or self-care (01) ==
LOC: RAH 10:48
PROVIDERS: ATTEND Internal Medicine
DX: S52.91XD Unspecified fracture of right forearm, subsequent encounter for closed fracture with routine healing (principal); X58.XXXD Exposure to other specified factors, subsequent encounter
CPT/HCPCS: 73090